=== PATIENT | female | born 1995 | race Caucasian/White ===

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

== ENCOUNTER → 2017-08-11 | Outpatient (REF) | payer OTHER | LOC: M SFHCLERA 15:35 | PROVIDERS: ATTEND Family Medicine | DX: Z30.09 Encounter for other general counseling and advice on contraception (principal) ==

== ENCOUNTER → 2018-10-04 | Outpatient (REF) | payer OTHER | LOC: M SFHCPLAZ 15:29 | PROVIDERS: ATTEND Nurse Practitioner Family | DX: Z01.419 Encounter for gynecological examination (general) (routine) without abnormal findings (principal) | CPT/HCPCS: G0123; G0463 ==